=== PATIENT | female | born 1985 | race Caucasian/White ===

== ENCOUNTER 2025-01-15 14:56 | Emergency (ER) | payer OTHER, BC, SELFPAY ==
[2025-01-15 15:12] VITALS: BP 155/85; PULSE 105; RESP 16; TEMP 36.6; O2SAT 100
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
== END 2025-01-15 15:41 | disposition home or self-care (01) ==
PROVIDERS: Emergency Provider Nurse Practitioner; PCP Physician Assistant
DX: S09.90XA Unspecified injury of head, initial encounter (principal); S00.83XA Contusion of other part of head, initial encounter; W50.0XXA Accidental hit or strike by another person, initial encounter
CPT/HCPCS: 99212; G0463